=== PATIENT | female | born 1985 | race American Indian/Alaskan Native ===

== ENCOUNTER 2018-04-16 19:27 | Emergency (ER) | payer MEDICAID, OTHER ==
[2018-04-16 19:32] VITALS: BP 118/51
[2018-04-16] MEDS ORDERED: NACL 0.9% 1000 ML 1,000 ML IV ONE (19:42)
[2018-04-16 20:25] LABS: Basophils % (Auto) 0.6 % (0.0-1.8); Eosinophils % (Auto) 0.7 % (0.0-4.3); Hematocrit 32.7 % (30.3-42.9); Hemoglobin 11.3 gm/dl (10.1-14.3); Lymphocytes # (Auto) 1.5 K/mm3 (1.2-5.4); Lymphocytes % (Auto) 27.6 % (13.4-35.0); Mean Corpuscular HGB Conc 35 % (30-34); Mean Corpuscular Hemoglobin 30 pg (28-32); Mean Corpuscular Volume 86 fl (79-97); Monocytes # (Auto) 0.4 K/mm3 (0.0-0.8); Monocytes % (Auto) 7.8 % (0.0-7.3); Platelet Count 242 K/mm3 (140-440); Red Blood Count 3.82 M/mm3 (3.65-5.03); Red Cell Distribution Width 12.9 % (13.2-15.2)
[2018-04-16 20:37] LABS: Bilirubin,Urine NEG (Negative); Blood,Urine SM (Negative); Color,Urine Yellow (Yellow); Mucus,Urine 2+ /HPF; Protein,Urine <15 mg/dL mg/dL (Negative)
[2018-04-16 20:40] LABS: Alanine Aminotransferase 7 units/L (7-56); Albumin 3.6 g/dL (3.9-5); BUN/Creatinine Ratio 20; Blood Urea Nitrogen 10 mg/dL (7-17); Calcium 8.7 mg/dL (8.4-10.2); Hemolysis Index 7; Lipase 28 units/L (13-60)
--- NOTE | 2018-04-17 00:43 | Emergency Department Report ---
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 denies: nausea /vomiting, fever/chills, headaches, loss of appetite, hematuria, rash, seizure, shortness of breath, syncope, weakness - Related Data Sexually active: Yes : 4 Para: 3 A: 0 Previous Rx's Medication Instructions Recorded Last Taken Type Meloxicam 15 mg PO QDAY #30 tablet 06/22/15 Unknown Rx traMADol [Ultram] 50 mg PO Q6HR PRN #20 tablet 06/22/15 Unknown Rx Acetaminophen/Codeine [Tylenol #3] 1 tab PO Q6H PRN #15 tab 10/21/15 Unknown Rx metroNIDAZOLE [Flagyl TAB] 500 mg PO Q12HR #20 tab 10/21/15 Unknown Rx Clindamycin 2% [Clindamycin 2% VAG 1 applicatio VG QHS 7 Days #40 gm 04/17/18 Unknown Rx CREAM] Nitrofurantoin Monohyd/M-Cryst 100 mg PO BID #14 capsule 04/17/18 Unknown Rx [Macrobid 100 mg Capsule] Allergies Allergy/AdvReac Type Severity Reaction Status Date / Time No Known Allergies Allergy Verified 04/16/18 19:41 ED Review of Systems ROS: Stated complaint: ABDOMINAL PAIN Other details as noted in HPI Constitutional: denies: chills, fever Eyes: denies: eye pain, eye discharge, vision change ENT: denies: ear pain, throat pain Respiratory: denies: cough, shortness of breath, wheezing Cardiovascular: denies: chest pain, palpitations Endocrine: no symptoms reported Gastrointestinal: denies: abdominal pain, nausea, diarrhea Genitourinary: urgency, dysuria, frequency. denies: hematuria, discharge ED Past Medical Hx - Past Medical History Previous Medical History?: No Additional medical history: Right knee pain - Surgical History Past Surgical History?: Yes Additional Surgical History: Right knee arthroscopy - Social History Smoking Status: Never Smoker Substance Use Type: None - Medications Home Medications: Home Medications Medication Instructions Recorded Confirmed Last Taken Type Meloxicam 15 mg PO QDAY #30 tablet 06/22/15 Unknown Rx traMADol [Ultram] 50 mg PO Q6HR PRN #20 tablet 06/22/15 Unknown Rx Acetaminophen/Codeine [Tylenol #3] 1 tab PO Q6H PRN #15 tab 10/21/15 Unknown Rx metroNIDAZOLE [Flagyl TAB] 500 mg PO Q12HR #20 tab 10/21/15 Unknown Rx Clindamycin 2% [Clindamycin 2% VAG 1 applicatio VG QHS 7 Days #40 gm 04/17/18 Unknown Rx CREAM] Nitrofurantoin Monohyd/M-Cryst 100 mg PO BID #14 capsule 04/17/18 Unknown Rx [Macrobid 100 mg Capsule] ED Physical Exam - General Limitations: No Limitations General appearance: alert, in no apparent distress - Head Head exam: Present: atraumatic, normocephalic - Eye Eye exam: Present: normal appearance - ENT ENT exam: Present: mucous membranes moist - Neck Neck exam: Present: normal inspection - Respiratory Respiratory exam: Present: normal lung sounds bilaterally. Absent: respiratory distress - Cardiovascular Cardiovascular Exam: Present: regular rate, normal rhythm. Absent: systolic murmur, diastolic murmur, rubs, gallop - GI/Abdominal GI/Abdominal exam: Present: soft, normal bowel sounds. Absent: distended, tenderness, guarding, rebound, rigid, organomegaly, mass, bruit, pulsatile mass , hernia - Rectal Rectal exam: Present: deferred - External exam: Present: normal external exam. Absent: erythema, swelling, lesions, lacerations, ecchymosis, bleeding Speculum exam: Present: erythema, vaginal discharge (white yellow malodorous no vaginal bleeding no ). Absent: cervical discharge, vaginal bleeding, foreign body, tissue, laceration Bi-manual exam: Absent: cervical motion tendernes, adnexal tenderness, adnexal mass, uterine enlargement, uterine tenderness - Extremities Exam Extremities exam: Present: normal inspection - Back Exam Back exam: Present: normal inspection - Neurological Exam Neurological exam: Present: alert, oriented X3 - Psychiatric Psychiatric exam: Present: normal affect, normal mood - Skin Skin exam: Present: warm, dry, intact, normal color. Absent: rash ED Course Vital Signs 04/16/18 19:25 Temperature 99.3 F Pulse Rate 78 Respiratory 18 Rate Blood Pressure 118/51 O2 Sat by Pulse 97 Oximetry ED Medical Decision Making - Lab Data Result diagrams: 04/16/18 19:46 04/16/18 19:46 - Radiology Data Radiology results: report reviewed, image reviewed US Single IUP 8W 6 Days, hr 164 bpm - Medical Decision Making Ultrasound single IUP 8 weeks and 6 days heart rate 164 bpm wet prep negative no trichomoniasis no BV no yeast however given symptoms white to yellow discharge malodorous vaginal clindamycin 7 days follow-up with FIELD TECHNICAL SPECIALIST in 2-3 days patient states feels better tolerating by mouth intake without nausea vomiting no fever no chills no vaginal bleeding IUP is intact to follow with [facility] [employer] in 2-3 days as directed. Critical care attestation.: If time is entered above; I have spent that time in minutes in the direct care of this critically ill patient, excluding procedure time. ED Disposition Clinical Impression: Bacterial vaginosis, Positive test Dysuria during Qualifiers: Trimester: first trimester Qualified Code(s): O26.891 - Other specified related conditions, first trimester; R30.0 - Dysuria Disposition: - TO HOME OR SELFCARE Is pt being admited?: No Does the pt Need Aspirin: No Condition: Good Instructions: Abdominal Pain (ED), Bacterial Vaginosis (ED) Prescriptions: Clindamycin 2% [Clindamycin 2% VAG CREAM] 1 applicatio VG QHS 7 Days #40 gm Nitrofurantoin Monohyd/M-Cryst [Macrobid 100 mg Capsule] 100 mg PO BID #14 capsule Referrals: [facility] [Outside] - 3-5 Days Forms: Work/School Release Form(ED) Time of Disposition: 01:36
--- NOTE | 2018-04-17 01:41 | Ultrasound Report ---
FINAL REPORT PROCEDURE: US OB TRANSVAGINAL TECHNIQUE: Real-time transvaginal sonography of the uterus, placenta, amniotic fluid, adnexa, and fetus was performed with image documentation. Measurements were obtained to determine age/size. M-mode Doppler was used to document heartbeat. CPT 96845 HISTORY: abd pain COMPARISON: No prior studies are available for comparison. FINDINGS: CRL: The 20mm, which corresponds to a gestational age of: 8weeks, 4 days. Yolk Sac: Normal. Embryonic Cardiac Activity: 164 beats per minute Gestational Sac: Normal. Right Ovary: There is a 2.2 centimeter cyst. Left Ovary: There is a 2.4 centimeter cyst. Estimated delivery date: 11/23/2018 Comment: Complete anatomic survey at 18-20 weeks suggested. IMPRESSION: 1. Single living intrauterine gestation at approximately 8 weeks and 4 days 2. EDC by US 11/23/2018.
--- NOTE | 2018-04-17 01:42 | Ultrasound Report ---
FINAL REPORT PROCEDURE: US OB less than 14 weeks TECHNIQUE: Real-time transabdominal sonography of the uterus, placenta, amniotic fluid, adnexa, and fetus was performed with image documentation. Measurements were obtained to determine age/size. M-mode Doppler was used to document heartbeat. HISTORY: abd pain COMPARISON: No prior studies are available for comparison. FINDINGS: CRL: The 20mm, which corresponds to a gestational age of: 8weeks, 4 days. Yolk Sac: Normal. Embryonic Cardiac Activity: 164 beats per minute Gestational Sac: Normal. Right Ovary: There is a 2.2 centimeter cyst. Left Ovary: There is a 2.4 centimeter cyst. Estimated delivery date: 11/23/2018 Comment: Complete anatomic survey at 18-20 weeks suggested. IMPRESSION: 1. Single living intrauterine gestation at approximately 8 weeks and 4 days 2. EDC by US 11/23/2018.
== END 2018-04-17 01:54 | disposition home or self-care (01) ==
LOC: ED 19:27
DX: O23.591 Infection of other part of genital tract in pregnancy, first trimester (principal); O26.891 Other specified pregnancy related conditions, first trimester; R30.0 Dysuria; B96.89 Other specified bacterial agents as the cause of diseases classified elsewhere; Z3A.08 8 weeks gestation of pregnancy
CPT/HCPCS: 36415; 76801; 76817; 80053; 81001; 83690; 84702; 85025; 86850; 86900; 86901; 87210; 87591